=== PATIENT | female | born 1965 | race Two or more races ===

== ENCOUNTER 2018-11-01 11:27 | Inpatient (IN) | payer OTHER ==
[2018-11-01] VITALS (9 sets, daily range): BP systolic 108–126; BP diastolic 71–95
[~2018-11-01] VITALS: Ht 152.4 cm; Wt 70.3 kg
--- NOTE | 2018-11-01 11:30 | NUR ---
PT BIB FROM [facility] C/O INTERMITTENT ABDOMINAL PAIN W/ NAUSEA AND VOMITNG X 4 DAYS. 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 GOWNED AND PLACED ON MONITOR. AWAITING MD CARNES.
--- NOTE | 2018-11-01 11:38 | NUR ---
DR HUNTER AT BEDSIDE FOR EVAL.
--- NOTE | 2018-11-01 11:42 | NUR ---
IV LINE STARTED BLOOD DRAWN AND SENT TO LAB.
[2018-11-01] MEDS ORDERED: ONDANSETRON HCL/PF 4 MG/2 ML VIAL ONE (11:48)
[2018-11-01 11:51] LABS: BASOPHILS # (AUTO) 0.1 /CMM (0.0-0.2); BASOPHILS % (AUTO) 1.5 % (0.0-2.0); HEMATOCRIT 50 % (33-45); HEMOGLOBIN 16.6 g/dL (11.5-14.8); LYMPHOCYTES # (AUTO) 2.5 /CMM (0.8-4.8); LYMPHOCYTES % (AUTO) 27.6 % (20.0-44.0); MEAN CORPUSCULAR HGB CONC 33 g/dl (31.0-36.0); MEAN CORPUSCULAR VOLUME 84 fL (82-100); MONOCYTES # (AUTO) 0.3 /CMM (0.1-1.30); MONOCYTES % (AUTO) 3.5 % (2.0-12.0); NEUTROPHILS % (AUTO) 67.4 % (43.0-81.0); PLATELET COUNT (AUTO) 318 /CMM (150-450); RED BLOOD CELL COUNT(AUTO) 6.01 MIL/uL (4.0-5.2); WHITE BLOOD COUNT (AUTO) 8.9 K/uL (4.3-11.0)
[2018-11-01] MEDS ORDERED: IV NS 0.9% 1,000 ML BAG IV ONE ×2 (12:00→13:30)
[2018-11-01] MEDS ORDERED: ONDANSETRON HCL/PF 4 MG/2 ML VIAL IVP ONE (12:00)
[2018-11-01 12:05] LABS: ALANINE AMINOTRANSFERASE 38 U/L (12-78); ALBUMIN 4.1 g/dL (3.4-5.0); ALKALINE PHOSPHATASE 168 U/L (46-116); ASPARTATE AMINOTRANSFERASE 15 U/L (15-37); BILIRUBIN,DIRECT 0.1 mg/dL (0.0-0.2); BILIRUBIN,TOTAL 0.6 mg/dL (0.2-1.0); CALCIUM, SERUM 10.4 mg/dL (8.5-10.1); CARBON DIOXIDE 19 mmol/L (21-32); CHLORIDE 87 mmol/L (98-107); CREATININE 1.7 mg/dL (0.6-1.3); LIPASE 224 U/L (73-393); SODIUM SERUM 126 mmol/L (136-145); UREA NITROGEN, BLOOD 37 mg/dL (7-18)
[2018-11-01 12:07] LABS: GLUCOSE 746 mg/dL (74-106); POTASSIUM 6.2 mmol/L (3.5-5.1)
[2018-11-01 12:18] LABS: APPEARANCE,URINE Clear (CLEAR); BILIRUBIN,URINE SMALL (NEGATIVE); BLOOD, URINE Trace-intact Ery/uL (NEGATIVE); COLOR,URINE Light yellow (YELLOW); KETONES,URINE >=160 (NEGATIVE); LEUKOCYTE ESTERASE ,URINE Negative (NEGATIVE); NITRITE, URINE Negative (NEGATIVE); PROTEIN,URINE Negative (NEGATIVE); UGLUCOSE 500 MG/DL mg/dL (NEGATIVE); UROBILINOGEN,URINE 0.2 EU/dL (0.2)
[2018-11-01] MEDS ORDERED: Calcium Gluconate 1GM/10ML 4.65 MEQ in IV NS 0.9% 50 ML IV ONE (12:30)
[2018-11-01] MEDS ORDERED: INSULIN REGULAR, HUMAN 100 UNIT in IV NS 0.9% 99 ML IV PRN ×4 (12:30→15:00)
--- NOTE | 2018-11-01 12:31 | NUR ---
CALLED , TRANSFERRED CALL TO
--- NOTE | 2018-11-01 12:32 | NUR ---
CALLED NURSING SUP. FOR ICU BED
[2018-11-01 12:33] LABS: BACTERIA,URINE None seen /HPF (None Seen); RBC,URINE 0-2 /HPF (0-2); SQUAMOUS EPITHELIAL CELL,UR Few /HPF (None Seen); WBC,URINE 0-2 /HPF (0-3)
--- NOTE | 2018-11-01 12:54 | NUR ---
ICU 251
--- NOTE | 2018-11-01 13:10 | NUR ---
CALLED TO GIVEN REPORT, NURSE UNABLE AT THIS TIME.
--- NOTE | 2018-11-01 13:24 | NUR ---
REPORT GIVEN TO CRISTINA RUDOLPH. PT AWAITING TRANSFER TO FLOOR.
--- NOTE | 2018-11-01 14:45 | NUR ---
DR. CINTRON CALLED REGARDING ADMISSION ORDWERS. SPOKE TO MD-ADMITTING ORDERS RECEIVED VIA TELEPHONE. ORDERS PLACED.
[2018-11-01] MEDS ORDERED: IV 1/2NS 1000 ML 1,000 ML IV PRN (15:00)
[2018-11-01] MEDS ORDERED: SODIUM POLYSTYRENE SULFONATE 15 G/60 ML BOTTLE PO ONE (17:00)
[2018-11-01] MEDS ORDERED: ONDANSETRON HCL/PF 4 MG/2 ML VIAL IV PRN (17:00)
[2018-11-01] MEDS ORDERED: IV NS 0.9% 1,000 ML IV PRN (17:00)
[2018-11-01] MEDS: BLOOD SUGAR DIAGNOSTIC 1 EACH STRIP IN SCH ×9 (17:34→23:29)
[2018-11-01] MEDS: AMLODIPINE BESYLATE 2.5 MG TABLET PO SCH (17:37)
[2018-11-01] MEDS: IV NS 0.9% 1,000 ML IV PRN (19:01)
--- NOTE | 2018-11-01 19:53 | NUR ---
MAGNETIC GRINDER OPERATOR OPENING NOTES REPORT RECEIVED FROM CRISTINA Castillo RN. PATIENT A/A/O X3, ABLE TO MAKE NEEDS KNOWN. BREATHING EVEN & UNLABORED, TOLERATING ROOM AIR, SATING WELL @ 95%. DENIES ANY SOB OR DIFFICULTY BREATHING. ON TELE W/ SINUS RHYTHM, HR 85. RIGHT AND LEFT AC IV #20 INTACT & PATENT W/ DRESSING CDI & IVF 1/2 NS INFUSING WELL @ 125 ML/HR. ONGOING INSULIN DRIP INFUSING @ 6 UNITS @ THIS TIME & TO TITRATE PER PROTOCOL. DENIES ANY PAIN OR DISCOMFORT @ THIS TIME. SAFETY MEASURES IN PLACE W/ SIDE RAILS UP & BED ALARM ON. INSTRUCTED TO USE CALL LIGHT FOR ASSISTANCE. WILL CONTINUE TO MONITOR CLOSELY.
[2018-11-01 20:07] LABS: CALCIUM, SERUM 8.5 mg/dL (8.5-10.1); CREATININE 1.2 mg/dL (0.6-1.3); POTASSIUM 3.8 mmol/L (3.5-5.1)
[2018-11-02] VITALS (17 sets, daily range): BP systolic 93–138; BP diastolic 53–85
[2018-11-02] MEDS: BLOOD SUGAR DIAGNOSTIC 1 EACH STRIP IN SCH ×9 (00:21→08:11)
[2018-11-02] MEDS: IV NS 0.9% 1,000 ML IV PRN (03:40)
[2018-11-02 05:00] LABS: BASOPHILS % (AUTO) 0.3 % (0.0-2.0); EOSINOPHILS % (AUTO) 0.9 % (0.0-6.0); HEMATOCRIT 37 % (33-45); HEMOGLOBIN 12.7 g/dL (11.5-14.8); LYMPHOCYTES # (AUTO) 3.1 /CMM (0.8-4.8); LYMPHOCYTES % (AUTO) 43.3 % (20.0-44.0); MEAN CORPUSCULAR HGB CONC 35 g/dl (31.0-36.0); MEAN CORPUSCULAR VOLUME 81 fL (82-100); MONOCYTES # (AUTO) 0.5 /CMM (0.1-1.30); MONOCYTES % (AUTO) 6.7 % (2.0-12.0); NEUTROPHILS # (AUTO) 3.5 /CMM (1.8-8.9); NEUTROPHILS % (AUTO) 48.8 % (43.0-81.0); PLATELET COUNT (AUTO) 232 /CMM (150-450); RED BLOOD CELL COUNT(AUTO) 4.54 MIL/uL (4.0-5.2); WHITE BLOOD COUNT (AUTO) 7.2 K/uL (4.3-11.0)
[2018-11-02 05:29] LABS: ALBUMIN 2.7 g/dL (3.4-5.0); BILIRUBIN,TOTAL 0.5 mg/dL (0.2-1.0); CALCIUM, SERUM 8.2 mg/dL (8.5-10.1); POTASSIUM 3.3 mmol/L (3.5-5.1); TOTAL PROTEIN, SERUM 5.9 g/dL (6.4-8.2)
[2018-11-02 05:33] LABS: THYROID STIMULATING HORMONE 0.83 uIU/mL (0.358-3.74)
--- NOTE | 2018-11-02 07:00 | NUR ---
RN NOTES RECEIVED PT ON BED , A/OX4, ON RA, RESPIRATION EVEN AND UNLABORED, NO SOB NOTED, ON TELE SR -ST HR IN LOW 100'S , INSULIN DRIP AT 2 UNITS /HR AND NS AT 125CC/HR RUNNING VIA L AC IV SITE G 20 , SITE CLEAN ,DRY AND INTACT , SR UPX3, CALL LIGHT WITHIN EASY REACH, BED LOCKED AND IN LOWEST POSITION, CONTINUE TO MONITOR
--- NOTE | 2018-11-02 07:26 | NUR ---
CURING FINISHER CLOSING NOTES PATIENT AWAKE & RESTING COMFORTABLY IN BED W/ BREAKFAST TRAY SERVED. INSULIN DRIP INFUSING @ 2 UNITS/KG/HR IN LEFT AC IV W/ NO COMPLICATIONS NOTED. ALL NEEDS MET & ORDERS CARRIED OUT. NO SIGNIFICANT CHANGES THROUGHOUT SHIFT. REPORT GIVEN TO AM NURSE.
[2018-11-02] MEDS: PANTOPRAZOLE 40 MG TABLET.DR PO SCH (08:10)
[2018-11-02] MEDS: AMLODIPINE BESYLATE 2.5 MG TABLET PO SCH (08:11)
[2018-11-02] MEDS ORDERED: LISI1TAB11 PO (08:26)
[2018-11-02] MEDS ORDERED: INSULIN GLARGINE, 100 UNIT/ML CARTRIDGE SQ SCH (08:30)
[2018-11-02] MEDS ORDERED: *INSULIN REGULAR(HUMULIN R)HUM 100 UNIT/ML VIAL SQ PRN (08:30)
[2018-11-02] MEDS ORDERED: DEXTROSE 50%-WATER 50 ML DISP.SYRIN IV PRN (08:30)
[2018-11-02] MEDS ORDERED: POTASSIUM CHLORIDE 20 MEQ TAB.PRT.SR PO ONE (08:30)
[2018-11-02] MEDS: METFORMIN 500 MG TABLET PO SCH ×2 (08:37→16:32)
--- NOTE | 2018-11-02 10:56 | NUR ---
RECEIVED REPORT FROM COLLINS RUDOLPH ICU.
--- NOTE | 2018-11-02 11:06 | NUR ---
RN NOTES REPORT GIVEN TO KENZIE RUDOLPH FOR CONTINUITY OF CARE .
--- NOTE | 2018-11-02 11:22 | NUR ---
RN NOTES PATIENT TRANSFERRED TO [facility] SAFELY BY WHEELCHAIR ACCOMPANIED BY STAFF. NO SIGN OF PAIN, SHE IS AWAKE, ALERT.ALL HER BELONGINGS WITH HER
--- NOTE | 2018-11-02 11:24 | NUR ---
PATIENT ARRIVED VIA WHEELCHAIR TO UNIT. NO ACUTE DISTRESS OR SOB NOTED. PATIENT A/OX4. TEMP 98.7, HR 81, RR 20, SPO2 96% ON ROOM AIR, BP 138/85. L & R AC 20G C/D/I, SALINE LOCKED, NO S/S INFILTRATION. NO S/S HYPO OR HYPERGLYCEMIA AT THIS TIME. BELONGINGS ON BED. BED LOCKED, LOW, SIDE RAILS UPX2, CALL LIGHT WITHIN REACH. PATIENT ABLE TO MAKE NEEDS KNOWN. WILL CONTINUE TO MONITOR.
[2018-11-02] MEDS: BLOOD SUGAR DIAGNOSTIC 1 EACH STRIP VI SCH ×3 (12:40→21:30)
[2018-11-02] MEDS: INSULIN REGULAR, HUMAN 100 UNIT/ML 3 ML VIAL SQ PRN ×2 (12:56→17:42)
[2018-11-02] MEDS ORDERED: INSULIN GLARGINE, 100 UNIT/ML CARTRIDGE SQ ONE (16:00)
[2018-11-02 16:12] LABS: CALCIUM, SERUM 8.3 mg/dL (8.5-10.1); CREATININE 0.9 mg/dL (0.6-1.3); POTASSIUM 3.4 mmol/L (3.5-5.1)
--- NOTE | 2018-11-02 18:55 | NUR ---
MS RN CLOSING PATIENT A/OX4. NO ACUTE DISTRESS OR SOB NOTED. L AND R AC 20G IVS C/D/I, PATIENT, SALINE LOCKED. NO S/S HYPOGLYCEMIA AT THIS TIME. PATIENT ORIENTED TO ROOM. ABLE TO MAKE NEEDS KNOWN. BED LOCKED, LOW, SIDE RAILS UPX2, CALL LIGHT WITHIN REACH. WILL ENDORSE TO [facility].
--- NOTE | 2018-11-02 19:05 | NUR ---
RN MS OPENING NOTES RECEIVED PATIENT IN BED AWAKE, ALERT AND ORIENTED X4, RESPIRATIONS EVEN AND UNLABORED WITH EQUAL RISE AND FALL OF CHEST, DENIES ANY PAIN OR DISCOMFORT AT THIS TIME, IV SITE TO LEFT AND RIGHT AC #20G SL INTACT AND PATENT, NO REDNESS, NO INFILTRATION PRESENT, ORIENTED TO STAFF AND CALL LIGHT AND KEPT WITHIN REACH SAFETY PRECAUTIONS IN PLACE LOW BED AND LOCKED, FLUIDS AND TOILETING OFFERED, ALL NEEDS ADDRESSED REMAINS COMFORTABLE WILL CONTINUE TO MONITOR AND ATTEND TO NEEDS. DISCUSSED PLAN OF CARE WITH PATIENT.
[2018-11-03 05:00] VITALS: BP 127/83
--- NOTE | 2018-11-03 06:45 | NUR ---
RN MS CLOSING NOTES PATIENT IN BED AWAKE, ALERT AND ORIENTED X4, RESPIRATIONS EVEN AND UNLABORED WITH EQUAL RISE AND FALL OF CHEST, DENIES ANY PAIN OR DISCOMFORT AT THIS TIME, IV SITE TO LEFT AND RIGHT AC #20G SL INTACT AND PATENT, NO REDNESS, NO INFILTRATION PRESENT, CALL LIGHT KEPT WITHIN REACH, TOILETING AND FLUIDS OFFERED, SAFETY PRECAUTIONS IN PLACE LOW BED AND LOCKED, ALL NEEDS ADDRESSED REMAINS COMFORTABLE WILL CONTINUE TO MONITOR AND ATTEND TO NEEDS AND ENDORSE TO NEXT SHIFT. NO CHANGES NOTED THROUGHOUT SHIFT.
--- NOTE | 2018-11-03 07:15 | NUR ---
MS RN OPENING NOTE RECEIVED PATIENT A/OX4. NO ACUTE DISTRESS OR SOB NOTED. ON ROOM AIR, TOLERATING WELL. NO S/S HYPOGLYCEMIA AT THIS TIME. IV SITE L & R AC20G, SALINE LOCKED, C/D/I. BED LOCKED, LOW, SIDE RAILS UPX2, PATIENT ABLE TO MAKE NEEDS KNOWN, CALL LIGHT WITHIN REACH. WILL CONTINUE TO MONITOR
[2018-11-03] MEDS: INSULIN REGULAR, HUMAN 100 UNIT/ML 3 ML VIAL SQ PRN ×2 (07:49→12:44)
[2018-11-03] MEDS: PANTOPRAZOLE 40 MG TABLET.DR PO SCH (07:50)
[2018-11-03] MEDS: BLOOD SUGAR DIAGNOSTIC 1 EACH STRIP VI SCH ×2 (07:50→12:42)
[2018-11-03 08:00] VITALS: BP 115/72
[2018-11-03] MEDS ORDERED: *INS REG SQ (08:18)
[2018-11-03] MEDS ORDERED: METF-440 PO (08:18)
[2018-11-03] MEDS ORDERED: Insulin Glargine,Hum SQ (08:18)
[2018-11-03] MEDS: METFORMIN 500 MG TABLET PO SCH (09:06)
--- NOTE | 2018-11-03 14:30 | NUR ---
RN D/C NOTE PATIENT IN STABLE CONDITION. NO ACUTE DISTRESS OR SOB NOTED. PATIENT EDUCATED ABOUT DIABETES, RELEVANT DIET, INSULIN AND S/S HYPOGLYCEMIA. PATIENT TAUGHT BACK AND VERBALIZES UNDERSTANDING. STATES SHE WILL HAVE HELP WITH MEDICATION ADMIN AT [facility]. PRESCRIPTION GIVEN TO PATIENT. ALL BELONGINGS ACCOUNTED FOR. NO WOUND PICTURES TO BE TAKEN. L & R AC 20G IVS REMOVED, CATHETER INTACT, DRESSING APPLIED. CAREER SERVICES ASSISTANT FROM FACILITY TO TAKE PATIENT BACK.
[2018-11-03] MEDS ORDERED: INSULIN GLARGINE, 100 UNIT/ML CARTRIDGE SQ SCH (22:00)
== END 2018-11-03 14:30 | DRG 469 ==
LOC: ER 11:27 → ICU 13:43 → MEDSG1 11-02 11:16
PROVIDERS: ADMIT Internal Medicine; ATTEND Internal Medicine
DX: N17.9 Acute kidney failure, unspecified (principal); E11.10 Type 2 diabetes mellitus with ketoacidosis without coma; E87.5 Hyperkalemia; E87.1 Hypo-osmolality and hyponatremia; E86.0 Dehydration; I10 Essential (primary) hypertension; Z79.4 Long term (current) use of insulin
CPT/HCPCS: 36415; 71045-TC; 80048-TC; 80053-TC; 80061-TC; 80076-TC; 81000-TC; 82962-TC; 83690-TC; 84443-TC; 84484-TC; 85025-TC; 87081-TC; A4216; G0378; J0610; J1815; J2405; J7030

== ENCOUNTER 2018-11-10 10:19 | Inpatient (IN) | payer OTHER ==
[~2018-11-10] VITALS: Ht 152.4 cm; Wt 66.2 kg
[2018-11-10] VITALS (11 sets, daily range): BP systolic 104–123; BP diastolic 62–80
[~2018-11-10 10:19] MED LIST: *INS REG SQ; Insulin Glargine,Hum SQ; METF-440 PO
[2018-11-10 10:55] LABS: BASOPHILS # (AUTO) 0.1 /CMM (0.0-0.2); BASOPHILS % (AUTO) 1.3 % (0.0-2.0); HEMATOCRIT 50 % (33-45); HEMOGLOBIN 16.1 g/dL (11.5-14.8); LYMPHOCYTES # (AUTO) 2.1 /CMM (0.8-4.8); MEAN CORPUSCULAR HGB CONC 32 g/dl (31.0-36.0); MEAN CORPUSCULAR VOLUME 86 fL (82-100); MONOCYTES # (AUTO) 0.4 /CMM (0.1-1.30); MONOCYTES % (AUTO) 3.7 % (2.0-12.0); NEUTROPHILS # (AUTO) 8.8 /CMM (1.8-8.9); PLATELET COUNT (AUTO) 445 /CMM (150-450); RED BLOOD CELL COUNT(AUTO) 5.85 MIL/uL (4.0-5.2); WHITE BLOOD COUNT (AUTO) 11.5 K/uL (4.3-11.0)
[2018-11-10] MEDS ORDERED: IV NS 0.9% 1,000 ML BAG IV ONE ×2 (11:00→11:30)
[2018-11-10] MEDS ORDERED: ONDANSETRON HCL/PF 4 MG/2 ML VIAL IVP ONE (11:00)
[2018-11-10 11:05] LABS: CALCIUM, SERUM 10.4 mg/dL (8.5-10.1); CARBON DIOXIDE 12 mmol/L (21-32); CHLORIDE 81 mmol/L (98-107); CREATININE 1.9 mg/dL (0.6-1.3); POTASSIUM 5.8 mmol/L (3.5-5.1); SODIUM SERUM 122 mmol/L (136-145); UREA NITROGEN, BLOOD 43 mg/dL (7-18)
[2018-11-10 11:08] LABS: ALANINE AMINOTRANSFERASE 27 U/L (12-78); ALBUMIN 4.2 g/dL (3.4-5.0); ALKALINE PHOSPHATASE 159 U/L (46-116); ASPARTATE AMINOTRANSFERASE 11 U/L (15-37); BILIRUBIN,DIRECT 0.1 mg/dL (0.0-0.2); BILIRUBIN,TOTAL 0.6 mg/dL (0.2-1.0); TOTAL PROTEIN, SERUM 9.1 g/dL (6.4-8.2)
[2018-11-10 11:09] LABS: GLUCOSE 821 mg/dL (74-106)
[2018-11-10] MEDS ORDERED: METF-440 PO (11:09)
[2018-11-10] MEDS ORDERED: LISI1TAB11 PO (11:09)
[2018-11-10] MEDS ORDERED: ONDANSETRON HCL/PF 4 MG/2 ML VIAL ONE (11:18)
--- NOTE | 2018-11-10 11:25 | NUR ---
PT BROUGHT IN FROM HOME WITH FIRE SUPPRESSION CAPTAIN FOR NAUSEA AND VOMITING. PT HAD HI POCT GLUCOSE AND 821 BY LAB MD REYNA AWARE K=5.8 PT ALERT AND ORIENTED PIV PLACED FLUIDS BEING ADMINISTERD AND NAUSEA MEDICATION GIVEN WLL WILL CONTINUE TO MONITOR
[2018-11-10] MEDS ORDERED: INSULIN REGULAR, HUMAN 100 UNIT in IV NS 0.9% 99 ML IV PRN ×6 (11:30→13:00)
--- NOTE | 2018-11-10 11:39 | NUR ---
REQUESTED ICU BED FOR THIS PT
[2018-11-10] MEDS ORDERED: IV NS 0.9% 1,000 ML IV PRN ×2 (11:40→13:00)
[2018-11-10] MEDS ORDERED: PANTOPRAZOLE 40 MG TABLET.DR PO SCH ×2 (12:00→13:00)
[2018-11-10] MEDS ORDERED: ACETAMINOPHEN 325 MG TABLET PO PRN ×2 (12:00→13:00)
[2018-11-10] MEDS ORDERED: MAG HYDROX/AL HYDROX/SIMETH 30 ML UDC PO PRN ×2 (12:00→13:00)
[2018-11-10] MEDS ORDERED: TEMAZEPAM 15 MG CAPSULE PO PRN ×2 (12:00→13:00)
[2018-11-10] MEDS ORDERED: HYDROCODONE/APAP 5/325MG 1 EACH TABLET PO PRN ×2 (12:00→13:00)
[2018-11-10] MEDS ORDERED: ONDANSETRON HCL/PF 4 MG/2 ML VIAL IVP PRN ×2 (12:00→13:00)
[2018-11-10] MEDS ORDERED: MAGNESIUM HYDROXIDE 30 ML UDC PO PRN ×2 (12:00→13:00)
--- NOTE | 2018-11-10 12:32 | NUR ---
PT ON INSULIN DRIP AT 6.8 UNITS PER HOUR POCT CHECK 30 MINUTES AFTER BEGINNING DRIP CRITICALLY HI. PT ADMIT TO ICU DKA
--- NOTE | 2018-11-10 12:53 | NUR ---
RN REPORT GIVEN TO NANDINI ICU NURSE. MORENA MALHOTRA ROOM 257
--- NOTE | 2018-11-10 12:53 | NUR ---
RN NOTES RECEIVED REPORT FROM KLAUDIA ZUNIGA FOR PATIENT COMING IN DUE TO N/V WITH DIAGNOSIS OF DKA UNDER THE CARE OF ROSCOE LEE DNP. ROOM PREPARED. BED ZEROED OUT. WILL WAIT FOR PATIENT' ARRIVAL
--- NOTE | 2018-11-10 13:15 | NUR ---
RN NOTES RECEIVED PATIENT VIA BHAVANI, ALERT AND ORIENTED X2-3, ABLE TO RESPOND APPROPRIATELY, NOT ON ANY FORM OF DISTRESS, BREATHING UNLABORED, TOLERATING ROOM AIR, SATING AT 98%, PATIENT TRANSFERRED TO BED, VITAL SIGNS TAKEN AND NOTED. SKIN ASSESSMENT DONE, SKIN NOTED TO BE INTACT. PATIENT MADE COMFORTABLE AND WARMTH IN BED. ASSESSMENT AND INTERVIEW DONE AND NOTED. PATIENT ORIENTED TO UNIT AND USE OF CALL LIGHT. SAFETY MEASURES INITIATED. HOB ELEVATED. SIDERAILSX2 RAISED, BED LOW AND LOCKED POSITION, ENCOURAGE TO USE CALL LIGHT FOR HELP AND ASSISTANCE, CALL LIGHT PLACED WITHIN REACH. WILL CONTINUE TO INFUSED IVF INITIATED AT ER. WILL WAIT FOR ADMITTING ORDERS AND WILL CONTINUE TO MONITOR PATIENT CLOSELY Addendum: 11/10/18 at 1647 by NANDINI BRAVO RN WITH ONGOING IVF OF NS BAG #1 RUNNING FREELY AND INSULIN RUNNING AT 6.8 UNITS/HR
--- NOTE | 2018-11-10 13:27 | NUR ---
RN NOTES BLOOD SUGAR AT AL (> 600MG/DL) INSULIN DRIP ALGORITHM #2 INITIATED. INSULIN ADMINISTRATION INCREASED TO 7 UNITS/HR FROM 6.8 UNITS/HR IN THE OR
--- NOTE | 2018-11-10 14:30 | NUR ---
RN NOTES PATIENT AWAKE, ALERT AND ORIENTED X3. NOT ON ANY FORM OF DISTRESS. BLOOD SUGAR AT "HI" (>600). INSULIN ADMINISTRATION CHANGE PER ALGORITHM #3. Addendum: 11/10/18 at 1758 by NANDINI BRAVO RN INSULIN NOW RUNNING AT 10 UNITS/HR
--- NOTE | 2018-11-10 15:30 | NUR ---
RN NOTES ROSCOE LEE DNP AT UNIT AT THIS TIME. MADE AWARE THAT BLOOD SUGAR AT 517 MG/DL. PER ROSCOE, CHANGE INSULIN ADMINISTRATION PER ALGORITHM #4. INSULIN NOW RUNNING AT 20 UNITS PER HOUR. PATIENT ALERT AND ORIENTEDX3, NOT ON [place] FORM OF DISTRESS. NO COMPLAINTS OF ANY KIND AT THIS TIME.
[2018-11-10 16:00] LABS: CALCIUM, SERUM 9.3 mg/dL (8.5-10.1); CREATININE 1.7 mg/dL (0.6-1.3); MAGNESIUM 2.4 mg/dL (1.8-2.4); PHOSPHORUS 3.9 mg/dL (2.5-4.9); POTASSIUM 4.5 mmol/L (3.5-5.1)
--- NOTE | 2018-11-10 16:30 | NUR ---
RN NOTES BLOOD SUGAR AT 378MG/DL- PER ALGOTITHM 4, INSULIN DRIP RUNNING AT 16UNITS PER HOUR.
--- NOTE | 2018-11-10 17:30 | NUR ---
RN NOTES BLOOD SUGAR AT 257MG/DL, INSULIN DRIP TITRATED TO 12 UNITS PER HOUR PER ALGORITHM #4.
--- NOTE | 2018-11-10 18:30 | NUR ---
RN NOTES BLOOD SUGAR AT 314, INSULIN DRIP ADJUSTED TO 14 UNITS PER HOUR PER ALGORITHM #4.
[2018-11-10 19:31] LABS: CALCIUM, SERUM 9.3 mg/dL (8.5-10.1); CREATININE 1.5 mg/dL (0.6-1.3); POTASSIUM 3.9 mmol/L (3.5-5.1)
--- NOTE | 2018-11-10 19:32 | NUR ---
RN NOTES ENDORSED FOR CONTINUITY OF CARE. NOT ON ANY FORM OF DISTRESS. NO ACUTE CHANGES WITHIN THE SHIFT. INSULIN DRIP RUNNING AT 14 UNITS PER HOUR. SAFETY MEASURES IN PLACE AT ALL TIMES. CALL LIGHT WITHIN REACH.
[2018-11-10] MEDS ORDERED: IV NS 0.9% 1,000 ML BAG IV PRN (20:00)
--- NOTE | 2018-11-10 20:00 | NUR ---
CONSUMER ANALYST. INITIAL ASSESSMENT. RECEIVED THE PT REST ON THE BED. AWAKE ALERT. FOLLOW COMMANDS. GAME WARDEN SHOWING S TACH, PT ON ROOM AIR SAT 98%. NO ACUTE DISTRESS NOTED. IV RT HAND 22G. IVF NS 150ML/H,INSULIN DRIP RUNNING. ALGORITHM #4. HOB ELEVATED. WILL CONTINUE TO MONITOR VITALS. RT AC IV20G AND LT AC 20G RECEIVED WITH INFILTRATED.NEW IV PLACED.
[2018-11-10] MEDS: IV D5/0.45 NACL 1,000 ML IV SCH (21:44)
[2018-11-10 23:43] LABS: CALCIUM, SERUM 8.7 mg/dL (8.5-10.1); CREATININE 1.3 mg/dL (0.6-1.3); POTASSIUM 4.4 mmol/L (3.5-5.1)
[2018-11-11] VITALS (16 sets, daily range): BP systolic 107–126; BP diastolic 58–82
--- NOTE | 2018-11-11 00:39 | NUR ---
HORTICULTURE/FLORICULTURE TEACHER, BLOOD SUGAR 1999 WAS 109.2100 101. CALLED SOIL FIELD TECHNICIAN MD LENZ NEW ORDER RECEIVED IVF D51/2NS 125ML/H
--- NOTE | 2018-11-11 03:48 | NUR ---
curriculum assistant. am care. oral care, bed bath given. linen changed. remaining same ivf and insulin drip running, accu check q1h. insulin drip per protocol. security monitor showing nsr, iv rt hand 20g and 22g, hob elevated, afebrile, will continue to monitor vitals,
[2018-11-11] MEDS: IV D5/0.45 NACL 1,000 ML IV SCH (04:37)
[2018-11-11 05:15] LABS: BASOPHILS % (AUTO) 0.4 % (0.0-2.0); EOSINOPHILS % (AUTO) 0.2 % (0.0-6.0); HEMATOCRIT 36 % (33-45); HEMOGLOBIN 12.2 g/dL (11.5-14.8); LYMPHOCYTES # (AUTO) 2.9 /CMM (0.8-4.8); LYMPHOCYTES % (AUTO) 29.3 % (20.0-44.0); MEAN CORPUSCULAR HGB CONC 34 g/dl (31.0-36.0); MEAN CORPUSCULAR VOLUME 81 fL (82-100); MONOCYTES # (AUTO) 0.7 /CMM (0.1-1.30); MONOCYTES % (AUTO) 7.3 % (2.0-12.0); NEUTROPHILS # (AUTO) 6.1 /CMM (1.8-8.9); NEUTROPHILS % (AUTO) 62.8 % (43.0-81.0); PLATELET COUNT (AUTO) 312 /CMM (150-450); RED BLOOD CELL COUNT(AUTO) 4.45 MIL/uL (4.0-5.2); WHITE BLOOD COUNT (AUTO) 9.8 K/uL (4.3-11.0)
[2018-11-11 05:27] LABS: CREATININE 3.9 mg/dL (0.6-1.3); POTASSIUM 4.1 mmol/L (3.5-5.1)
--- NOTE | 2018-11-11 07:00 | NUR ---
RN NOTES RECEIVED PT ON BED , A/0X4, ON RA , RESPIRATION EVEN AND UNLABORED, NO SOB NOTED, ON TELE SR HR IN 90'S , D51/NS AT 125CC/HR RUNNING VIA R AC IV SITE , PT ON INSULIN GTT AT 3 UNITS/HR AT THIS TIME , SR UP x3, CALL LIGHT WITHIN EASY REACH, BED LOCKED AND IN LOWEST POSITION , CONTINUE TO MONITOR .
[2018-11-11 09:57] LABS: CALCIUM, SERUM 8.6 mg/dL (8.5-10.1); CREATININE 1.1 mg/dL (0.6-1.3); POTASSIUM 3.5 mmol/L (3.5-5.1)
[2018-11-11] MEDS: FAMOTIDINE (20 MG) 20 MG TABLET PO SCH (10:56)
[2018-11-11] MEDS ORDERED: DEXTROSE 50%-WATER 50 ML DISP.SYRIN IV PRN (11:00)
--- NOTE | 2018-11-11 11:00 | NUR ---
RN NOTES ROSCOE REIKI PRACTITIONER NOTIFIED REGARDING BMP RESULTS , NEW ORDER RECEIVED, CONTINUE TO MONITOR .
[2018-11-11] MEDS: INSULIN REGULAR, HUMAN 100 UNIT/ML 3 ML VIAL SQ PRN ×3 (11:25→22:07)
[2018-11-11] MEDS: BLOOD SUGAR DIAGNOSTIC 1 EACH STRIP IN SCH ×3 (11:26→21:13)
[2018-11-11] MEDS: INSULIN ASPART/LISPRO 100 UNIT/ML CARTRIDGE SQ SCH ×2 (11:28→18:37)
--- NOTE | 2018-11-11 13:06 | NUR ---
RN NOTSES REPORT GIVEN TO SHAQUILLE RUDOLPH FOR CONTINUITY OF CARE.
--- NOTE | 2018-11-11 13:15 | NUR ---
RN NOTES PT TRANSFERRED TO ROOM 206-2, MED SURGE STATUS IN STABLE CONDITION, WITH ALL HER BELONGINGS.
--- NOTE | 2018-11-11 13:30 | NUR ---
MS/superintendent service Patient transferred from ICU. A/O X3, vital signs recorded, all belongings accounted for on belongings list upon transfer. Oriented to new surroundings. Aware of how to operate bed and call for help. New needs or concerns at this time. Will continue to monitor and ensure safety.
--- NOTE | 2018-11-11 17:21 | NUR ---
MS/RN Blood sugar Blood sugar at 5p - 188, insulin coverage administered as per sliding scale.
--- NOTE | 2018-11-11 18:49 | NUR ---
MS/RN End note Insulins administered as per orders, no signs or symptoms of hyperglycemia. Tolerating diet with no nausea or vomiting. Will endorse to security shift manager.
--- NOTE | 2018-11-11 19:26 | NUR ---
MS RN RECEIVE PT IN BED A/O X 3, RESPIRATIONS EVEN AND UNLABORED,STABLE, NO S/S OF DISTRESS, SAFETY MEASURES IN PLACE. WILL CONTINUE TO MONITOR
[2018-11-11] MEDS ORDERED: INSULIN GLARGINE, 100 UNIT/ML CARTRIDGE SQ SCH (22:00)
[2018-11-12] MEDS: BLOOD SUGAR DIAGNOSTIC 1 EACH STRIP IN SCH ×2 (06:05→12:02)
[2018-11-12] MEDS: INSULIN REGULAR, HUMAN 100 UNIT/ML 3 ML VIAL SQ PRN ×2 (06:11→12:03)
--- NOTE | 2018-11-12 06:24 | NUR ---
MS RN ASLEEP AND EASILY AWAKEN, RESPIRATIONS EVEN AND UNLABORED, PT ATE LIGHT SNACK THIS AM. STABLE, KEPT CLEAN AND DRY AND COMFORTABLE. NEEDS ATTENDED AND ANTICIPATED, NURSING CARE RENDERED, OFFLOAD HEELS AND ELBOWS AT ALL TIMES. NO S/S OF DISTRESS, ASSISTED REPOSITIONED EVERY 2 HOURS. SAFETY MEASURES AT ALL TIMES. ENDORSE TO THE NEXT SHIFT.
--- NOTE | 2018-11-12 07:33 | NUR ---
MS RN OPENING NOTES RECEIVED PT SITTING UPRIGHT IN BED. PT IS A/O X4, AFEBRILE. RESPIRATIONS ARE EVEN AND UNLABORED, NOT IN ANY ACUTE DISTRESS NOTED. PUPILS ARE REACTIVE TO LIGHT, BILATERAL HAND AUDIO SPECIALIST ARE STRONG AND EQUAL. PT DENIES ANY PAIN, NO C/O SOB, N/V. ABDOMEN IS SOFT AND NONDISTENDED, BOWEL SOUNDS ARE PRESENT IN ALL 4 QUADRANTS UPON AUSCULTATION. DENIES ANY BLADDER DISCOMFORT. IV SITE TO RAC G20 INTACT, NO INFILTRATION NOTED. DRESSING KEPT CLEAN AND DRY. SAFETY MEASURES ARE IN PLACE. INSTRUCTED PT TO USE CALL LIGHT WHEN ASSISTANCE IS NEEDED, CALL LIGHT IS LEFT WITHIN REACH. WILL MONITOR THROUGHOUT SHIFT FOR CONTINUITY OF CARE.
[2018-11-12 08:00] VITALS: BP 118/76
[2018-11-12 08:00] LABS: BASOPHILS % (AUTO) 0.3 % (0.0-2.0); EOSINOPHILS % (AUTO) 0.8 % (0.0-6.0); HEMATOCRIT 35 % (33-45); HEMOGLOBIN 11.8 g/dL (11.5-14.8); LYMPHOCYTES # (AUTO) 2.8 /CMM (0.8-4.8); LYMPHOCYTES % (AUTO) 44.6 % (20.0-44.0); MEAN CORPUSCULAR HGB CONC 34 g/dl (31.0-36.0); MEAN CORPUSCULAR VOLUME 81 fL (82-100); MONOCYTES # (AUTO) 0.5 /CMM (0.1-1.30); MONOCYTES % (AUTO) 7.3 % (2.0-12.0); NEUTROPHILS # (AUTO) 2.9 /CMM (1.8-8.9); PLATELET COUNT (AUTO) 262 /CMM (150-450); RED BLOOD CELL COUNT(AUTO) 4.32 MIL/uL (4.0-5.2); WHITE BLOOD COUNT (AUTO) 6.2 K/uL (4.3-11.0)
[2018-11-12 08:15] LABS: CALCIUM, SERUM 8.6 mg/dL (8.5-10.1); CREATININE 0.8 mg/dL (0.6-1.3); POTASSIUM 3.6 mmol/L (3.5-5.1)
[2018-11-12] MEDS: FAMOTIDINE (20 MG) 20 MG TABLET PO SCH (08:29)
[2018-11-12] MEDS: INSULIN ASPART/LISPRO 100 UNIT/ML CARTRIDGE SQ SCH (08:40)
--- NOTE | 2018-11-12 14:15 | NUR ---
MS HYDRAULIC ROCK DRILL OPERATOR NOTE PT DISCHARGE TO [facility] IN STABLE CONDITION ACCOMPANIED BY SON TAI VIA PRIVATE CAR. PT IS A/O X4, AFEBRILE. RESPIRATIONS ARE EVEN AND UNLABORED, NOT IN ANY ACUTE DISTRESS NOTED. PUPILS ARE REACTIVE TO LIGHT, BILATERAL HAND MEALS ON WHEELS DRIVER ARE STRONG AND EQUAL. DENIES ANY PAIN, NO C/O SOB, N/V. ABDOMEN IS SOFT AND NONDISTENDED, BOWEL SOUNDS ARE PRESENT IN ALL 4 QUADRANTS UPON AUSCULTATION. DENIES ANY BLADDER DISCOMFORT. PT IS AMBULATORY. SKIN IS INTACT, KEPT CLEAN AND DRY. NO SKIN ISSUES NOTED. IV ACCESS REMOVED TO BOTH RAC AND RIGHT HAND, APPLIED PRESSURE AND TOLERATED WELL. ID BANDS REMOVED. EXPLAINED DISCHARGE PAPERWORK TO PT AND SON AT BEDSIDE WITH VERBAL AND WRITTEN UNDERSTANDING. ALL BELONGINGS SENT WITH PT. PT LEFT IN STABLE CONDITION.
== END 2018-11-12 14:15 | DRG 420 ==
LOC: ER 10:19 → ICU 13:25 → MEDSG2 11-11 13:40
PROVIDERS: ADMIT Nurse Practitioner Acute Care; ATTEND Nurse Practitioner Acute Care
DX: E11.10 Type 2 diabetes mellitus with ketoacidosis without coma (principal); N17.0 Acute kidney failure with tubular necrosis; Z79.84 Long term (current) use of oral hypoglycemic drugs; Z79.899 Other long term (current) drug therapy; E11.65 Type 2 diabetes mellitus with hyperglycemia; E86.0 Dehydration; E87.1 Hypo-osmolality and hyponatremia; E87.5 Hyperkalemia; I10 Essential (primary) hypertension; Z91.14 Patient's other noncompliance with medication regimen; Z82.49 Family history of ischemic heart disease and other diseases of the circulatory system
CPT/HCPCS: 36415; 71045-TC; 80048-TC; 80076-TC; 82962-TC; 83690-TC; 83735-TC; 83880; 84100-TC; 84484-TC; 85025-TC; 87081-TC; G0378; J1815; J2405; J3490; J7030